=== PATIENT | female | born 1970 | race African-American/Black ===

== ENCOUNTER → 2020-06-26 | Outpatient (CLI) | payer OTHER ==
--- NOTE | 2020-07-11 11:46 | PF ---
[address] [address] PULMONARY FUNCTION REPORT Name: JAE TOTH Room: [facility]#: [id number] Admission: 06/26/20 Attend Phys: Manuel Damon MD Discharge: Date of : 66 Report #: [id number] THIS REPORT FOR: //name// CC: Manuel Delacruz DATE OF SERVICE: 06/26/2020 The FEV1/FVC ratio is normal at 75%, but the FVC is markedly decreased to 43% with an FEV1 decreased to 41%. The [id number] is also decreased to 29%. After the administration of a bronchodilator, there is a significant increase in the FVC of 54%, which does exceed 200 mL as well. The FEV1 also increases by 49%. The patient's post-bronchodilator FEV1 is noted to be 1.80 liters. There is significant variation noted in the patient's effort and the results are not acceptable and reproducible by ATS criteria as a result. Only spirometry was performed. IMPRESSION: There is a marked restrictive pattern noted on the patient's spirometry with a significant increase in FEV1 as well as FVC noted after the administration of albuterol. This is suggestive of severe obstruction with reversibility. It is, however, noted that it is also highly variable and the patient's effort does not appear to be consisted, which may have affected the results. Presence of underlying restriction and/or neuromuscular weakness, if present could have altered these values as well. If clinically indicated, then full pulmonary function tests with lung volumes can be obtained again to evaluate further. <ELECTRONICALLY SIGNED> By: Jules Brunson MD 07/11/20 [id number] Brunson MD /nt
== END ==
LOC: M.PUL 10:10
PROVIDERS: ATTEND Orthopaedic Surgery
DX: J45.998 Other asthma (principal)